=== PATIENT | female | born 1935 | race Caucasian/White ===

== ENCOUNTER 2021-06-22 14:36 | Emergency (ER) | payer MEDICARE ==
[~2021-06-22] VITALS: Wt 42.2 kg
[2021-06-22] MEDS ORDERED: AMLODIPINE BESYL5 MG PO (14:48)
[2021-06-22] MEDS ORDERED: ATORVASTATIN CA10 MG PO (14:48)
[2021-06-22] MEDS ORDERED: PREDNISONE 5MG5 MG PO (14:48)
[2021-06-22] MEDS ORDERED: ASPIRIN E.C. 8181 MG (14:48)
[2021-06-22 15:33] LABS: HEMATOCRIT 36.8 % (37.0-47.0); HEMOGLOBIN 12.1 g/dL (12.5-16.0); MEAN CELL VOLUME 89 fl (78-100); MEAN CORPUSCULAR HEMOGLOBIN 29 pg (27-31); MEAN CORPUSCULAR HGB CONC 33 g/dL (33-37); MEAN PLATELET VOLUME 10.9 fl (7.4-10.4); PLATELET COUNT 168 K/mm3 (130-400); RED BLOOD COUNT 4.14 M/mm3 (4.10-5.30); RED CELL DISTRIBUTION WIDTH 14.9 % (11.5-14.5)
[2021-06-22 15:39] LABS: WHITE BLOOD COUNT 23.8 K/mm3 (4.8-10.8)
[2021-06-22 15:45] LABS: POTASSIUM 3.1 mmol/L (3.5-5.1)
[2021-06-22 15:46] LABS: CALCIUM 8.4 mg/dL (8.3-10.5)
[2021-06-22 15:47] LABS: TOTAL PROTEIN 6.2 g/dL (6.2-8.1)
[2021-06-22 15:49] LABS: TOTAL BILIRUBIN 0.7 mg/dL (0.2-1.2)
[2021-06-22 16:25] LABS: LYMPHOCYTE 4 % (20-51); MONOCYTE 6 % (3-10); NEUTROPHILS 90 % (42-75)
[2021-06-22 16:54] LABS: URINE APPEARANCE HAZY; URINE BILIRUBIN NEGATIVE (NEGATIVE); URINE BLOOD 250 ery/uL (NEGATIVE); URINE COLOR YELLOW; URINE GLUCOSE NEGATIVE (NEGATIVE); URINE KETONE NEGATIVE (NEGATIVE); URINE LEUKOCYTE ESTERASE 1+ (NEGATIVE); URINE MUCUS PRESENT (NOT PRESENT); URINE NITRATE NEGATIVE (NEGATIVE); URINE PROTEIN(semi-quant) 2+ mg/dL (NEGATIVE); URINE UROBILINOGEN NORMAL (NORMAL)
[2021-06-22 19:13] VITALS: BP 188/81
== END 2021-06-22 19:15 | disposition other institution (70) ==
LOC: ED 14:36
PROVIDERS: Family Medicine
DX: J12.9 Viral pneumonia, unspecified (principal); R79.89 Other specified abnormal findings of blood chemistry; J84.10 Pulmonary fibrosis, unspecified; I50.1 Left ventricular failure, unspecified; I25.10 Atherosclerotic heart disease of native coronary artery without angina pectoris; I10 Essential (primary) hypertension; Z20.822 Contact with and (suspected) exposure to COVID-19; Z79.899 Other long term (current) drug therapy; Z79.82 Long term (current) use of aspirin
CPT/HCPCS: J0696; J1100; J3480

== ENCOUNTER 2021-06-22 19:08 | Inpatient (IN) | payer MEDICARE ==
[~2021-06-22] VITALS: Wt 41.6 kg
[2021-06-22 19:08] VITALS: BP 100/53
[~2021-06-22 19:08] MED LIST: AMLODIPINE BESYL5 MG PO; ASPIRIN E.C. 8181 MG; ATORVASTATIN CA10 MG PO; PREDNISONE 5MG5 MG PO
[2021-06-22 19:18] VITALS: BP 93/58
[2021-06-22 20:11] VITALS: BP 101/61
[2021-06-22 22:13] VITALS: BP 104/64
[2021-06-23 02:24] VITALS: BP 111/61
[2021-06-23 06:02] VITALS: BP 106/66
[2021-06-23 08:28] LABS: POTASSIUM 3.9 mmol/L (3.5-5.1)
[2021-06-23 08:29] LABS: CALCIUM 8.1 mg/dL (8.3-10.5); HEMOGLOBIN 12.2 g/dL (12.5-16.0); MEAN CELL VOLUME 91 fl (78-100); MEAN CORPUSCULAR HEMOGLOBIN 29 pg (27-31); MEAN CORPUSCULAR HGB CONC 32 g/dL (33-37); MEAN PLATELET VOLUME 11.2 fl (7.4-10.4); PLATELET COUNT 188 K/mm3 (130-400); RED BLOOD COUNT 4.19 M/mm3 (4.10-5.30); RED CELL DISTRIBUTION WIDTH 15.4 % (11.5-14.5); WHITE BLOOD COUNT 19.4 K/mm3 (4.8-10.8)
[2021-06-23 08:30] LABS: TOTAL PROTEIN 6.3 g/dL (6.2-8.1)
[2021-06-23 08:32] LABS: TOTAL BILIRUBIN 0.5 mg/dL (0.2-1.2)
[2021-06-23 08:44] LABS: TROPONIN-I 0.17 ng/mL (<0.030)
[2021-06-23 08:46] LABS: BAND 4 % (0-10)
[2021-06-23 08:47] LABS: LYMPHOCYTE 2 % (20-51); MONOCYTE 4 % (3-10); NEUTROPHILS 90 % (42-75)
[2021-06-23 09:31] VITALS: BP 11/60; BP 110/60
[2021-06-23 13:30] VITALS: BP 106/57
[2021-06-23 17:56] VITALS: BP 113/59
[2021-06-23 21:47] VITALS: BP 102/61
[2021-06-24 05:59] VITALS: BP 123/70
[2021-06-24 08:37] LABS: HEMATOCRIT 37.9 % (37.0-47.0); HEMOGLOBIN 12.2 g/dL (12.5-16.0); MEAN CELL VOLUME 92 fl (78-100); MEAN CORPUSCULAR HEMOGLOBIN 30 pg (27-31); MEAN CORPUSCULAR HGB CONC 32 g/dL (33-37); MEAN PLATELET VOLUME 11.4 fl (7.4-10.4); MONO # 0.59 K/mm3 (0.20-0.80); NEU # 17.89 K/mm3 (1.40-6.50); PLATELET COUNT 214 K/mm3 (130-400); RED BLOOD COUNT 4.14 M/mm3 (4.10-5.30); RED CELL DISTRIBUTION WIDTH 15.6 % (11.5-14.5); WHITE BLOOD COUNT 19.3 K/mm3 (4.8-10.8)
[2021-06-24 08:50] LABS: ALBUMIN 3.3 g/dL (3.4-4.8)
[2021-06-24 08:51] LABS: POTASSIUM 3.8 mmol/L (3.5-5.1)
[2021-06-24 08:52] LABS: CALCIUM 7.7 mg/dL (8.3-10.5)
[2021-06-24 08:53] LABS: TOTAL PROTEIN 6.9 g/dL (6.2-8.1)
[2021-06-24 08:55] LABS: TOTAL BILIRUBIN 0.3 mg/dL (0.2-1.2)
[2021-06-24 09:05] LABS: TROPONIN-I 0.13 ng/mL (<0.030)
[2021-06-24 09:38] VITALS: BP 130/73
[2021-06-24 14:22] VITALS: BP 136/68
[2021-06-24 17:47] VITALS: BP 135/78
[2021-06-25 02:23] VITALS: BP 148/75
[2021-06-25 06:01] VITALS: BP 151/77
[2021-06-25 07:27] LABS: HEMATOCRIT 37.8 % (37.0-47.0); LYMPH# 0.75 K/mm3 (1.50-4.00); MEAN CELL VOLUME 90 fl (78-100); MEAN CORPUSCULAR HEMOGLOBIN 29 pg (27-31); MEAN CORPUSCULAR HGB CONC 32 g/dL (33-37); MEAN PLATELET VOLUME 11.6 fl (7.4-10.4); MONO # 0.45 K/mm3 (0.20-0.80); NEU # 9.66 K/mm3 (1.40-6.50); PLATELET COUNT 204 K/mm3 (130-400); RED CELL DISTRIBUTION WIDTH 15.6 % (11.5-14.5); WHITE BLOOD COUNT 10.9 K/mm3 (4.8-10.8)
[2021-06-25 07:48] LABS: ALBUMIN 3.3 g/dL (3.4-4.8)
[2021-06-25 07:52] LABS: TOTAL BILIRUBIN 0.3 mg/dL (0.2-1.2)
[2021-06-25 08:02] LABS: TROPONIN-I 0.09 ng/mL (<0.030)
[2021-06-25 09:13] VITALS: BP 170/75
[2021-06-25 13:20] VITALS: BP 150/71
[2021-06-25] MEDS ORDERED: CEFDINIR300 MG PO (13:44)
[2021-06-25] MEDS ORDERED: PREDNISONE10 MG PO (13:46)
== END 2021-06-25 14:48 | disposition home or self-care (01) | DRG 194 ==
LOC: MED/SURG 19:08
PROVIDERS: Nurse Practitioner; Physician Assistant; ADMIT Family Medicine
DX: J18.9 Pneumonia, unspecified organism (principal); N39.0 Urinary tract infection, site not specified; I10 Essential (primary) hypertension; I25.10 Atherosclerotic heart disease of native coronary artery without angina pectoris; I08.3 Combined rheumatic disorders of mitral, aortic and tricuspid valves; J84.10 Pulmonary fibrosis, unspecified; E78.5 Hyperlipidemia, unspecified; Z20.822 Contact with and (suspected) exposure to COVID-19; Z95.5 Presence of coronary angioplasty implant and graft
CPT/HCPCS: J0696; J1100; J1650